=== PATIENT | male | born 1955 | race Caucasian/White ===

== ENCOUNTER 2021-06-18 10:51 | Day surgery (SDC) | payer MEDICARE ==
[~2021-06-18] VITALS: Ht 180.3 cm; Wt 120.7 kg
[~2021-06-18 10:51] MED LIST: GABA300; IBUP800; LISI20; PANT40
[2021-06-18] MEDS ORDERED: HYDCHL25 PO (11:25)
--- NOTE | 2021-06-18 13:20 | NUR ---
06/18/21 1319 CAROLINA FREY INTERSCALENE NERVE BLOCK PERFORMED IN PRE-OP WITH DR. WALLIS 1303: TIME OUT CONDUCTED, SITE CHECK PERFORMED 1304: 2MG VERSED IVP & 100MCG FENTANYL IVP ADMINISTERED BY DR. WALLIS 1304: PROCEDURE START 1307: PROCEDURE END. 6L/MIN VIA NON-REBREATHER AND PULSE OX ON THROUGHOUT PROCEDURE. PT TOLERATED WELL.
== END 2021-06-18 15:50 | disposition home or self-care (01) ==
LOC: ORSCSDS 10:51
PROVIDERS: Orthopaedic Surgery
PROC: 0LM24ZZ Reattachment of Left Shoulder Tendon, Percutaneous Endoscopic Approach (ICD-10-PCS; principal; 2021-06-18 12:30)
PROC: 0RNK4ZZ Release Left Shoulder Joint, Percutaneous Endoscopic Approach (ICD-10-PCS; principal; 2021-06-18 12:30)
DX: M75.122 Complete rotator cuff tear or rupture of left shoulder, not specified as traumatic (principal); S46.002A Unspecified injury of muscle(s) and tendon(s) of the rotator cuff of left shoulder, initial encounter; M75.22 Bicipital tendinitis, left shoulder; M75.42 Impingement syndrome of left shoulder; I10 Essential (primary) hypertension; K21.9 Gastro-esophageal reflux disease without esophagitis; E66.01 Morbid (severe) obesity due to excess calories; Z68.36 Body mass index [BMI] 36.0-36.9, adult; Z79.899 Other long term (current) drug therapy
CPT/HCPCS: C1713; J0171; J0690; J1100; J1885; J2250; J2370; J2405; J2704; J3010; J7120